=== PATIENT | male | born 2005 | race Caucasian/White ===

== ENCOUNTER → 2024-01-23 10:39 | Outpatient (REF) | payer OTHER, SELFPAY ==
--- NOTE | 2024-01-23 12:03 | W.PN.UPDATE ---
Update Note
Progress Note Update
CTSP due to nausea/dry heaving during recovery of treadmill stress test. 18 yo with concern for long QT syndrome and history of 2 syncopal episodes (neither during activity). completed 14:30 of activity for 17.2 METS. during cool down while still
walking on treadmill patient noted some 'spots' in his vision and was helped to sit down at which time he had some dry heaving. 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 BP remained stable throughout episode
and no arrhythmia noted on monitor during episode per senior visual designer. QT appears stable throughout study by prelim review. he last ate/drank at 10:30PM last evening. provided some soda and crackers. feeling improved.
== END ==
LOC: RCS 10:39
PROVIDERS: ATTENDING PHYSICIAN Internal Medicine Cardiovascular Disease; FAMILY PHYSICIAN Internal Medicine
DX: R55 Syncope and collapse (principal); I45.81 Long QT syndrome
CPT/HCPCS: 93017